=== PATIENT | male | born 1980 | race Caucasian/White ===

== ENCOUNTER 2020-07-10 17:43 | Inpatient (IN) | payer MEDICARE, OTHER ==
[~2020-07-10] VITALS: Ht 175.3 cm; Wt 91.0 kg
[~2020-07-10 17:43] MED LIST: ACET500T68 PO; AMIN887L PO; ARGI1POW19 PO; ASCO100T4 PO; BACL10TA PO; CALC200T23 PO; CLONAZEPAM1 MG PO; CYCL10TA2 PO; ENOX40DI SQ; ESCITALOPRAM OX10 MG PO; FENT1PAT91 TD; FERR325T14 PO; FURO80TA3 PO; LACT1CAP19 PO; LEVO500T8 PO; LIDO700A21 TP; LOPE-101 PO; MAG-115 PO; METR500T PO; MULT15TA3 PO; OXYC30TA21 PO; PANT40TA77 PO; POLY2500 PO; PREG300C PO; TOLT2CAP PO; VANC125C10 PO; VANC250C3 PO; VITA25006 PO; ZOLP10TA PO
--- NOTE | 2020-07-10 18:43 | PHYS DOC ---
Past Medical History Past Medical History: CHF, Depression, GERD, Pneumonia, UTI Additional Past Medical Histor: CELLULITIS, PE, ULCERS, PARAPLEGIA, CDIFF, URINARY RETENTION, ULCERS, Past Surgical History: Other Additional Past Surgical Histo: MULTIPLE UNSTAGABLE ULCERS, SUPRAPUBIC C ATHETER, COLOSTOMY, PEG TUBE Smoking Status: Former Smoker Alcohol Use: Sober Drug Use: None Social History Narrative: "I USED TO BEFORE I WAS PLACED IN THE OLD [employer] H OME." General Adult EDM: Chief Complaint: LOWER EXTREMITY SWELLING HPI: HPI: 39-year-old paraplegic male presents via EMS with report of right foot and toe swelling and redness x2 weeks. Patient reports symptoms have not improved. Patient does have a history of DVT. Patient reports he has a IVC filter. Patient denies use of blood thinners. Denies fever or chills. Patient does have a history of pressure ulcers for which he sees wound management. Denies diabetes. Denies chest pain or shortness of air. Review of Systems: Review of Systems: Constitutional: Denies fever or chills Eyes: Denies redness or eye pain HENT: Denies nasal congestion or sore throat Respiratory: Denies cough or shortness of breath Cardiovascular: Denies chest pain or palpitations GI: Denies abdominal pain, nausea, or vomiting : Denies dysuria or hematuria Musculoskeletal: Reports right flank pain; reports swelling and redness to right distal foot and toes Integument: Reports redness and swelling to right distal foot and toes Neurologic: Denies headache, focal weakness or sensory changes Complete systems were reviewed and found to be within normal limits, except as d ocumented in this note. Heart Score: C/O Chest Pain: N/A Allergies: Allergies: Allergies Coded Allergies Type Severity Reaction Last Updated Verified amoxicillin Allergy Intermediate 01/10/20 Yes linezolid Allergy Intermediate 01/10/20 Yes I S O L A T I O N *CONTACT* Allergy Unknown MRSA WOUNDS 01/10/20 Yes ciprofloxacin Adverse Reaction Intermediate MAKES HIM FEEL LIKE HE IS FLOATING 06/25/20 Yes doxycycline Adverse Reaction Intermediate 06/24/20 Yes cefdinir Adverse Reaction Mild Nausea and Vomiting 01/10/20 Yes Physical Exam: PE: Constitutional: Well developed, well nourished, no acute distress, non-toxic appearance HENT: Normocephalic, atraumatic Eyes: Conjunctiva normal, no discharge Neck: Normal range of motion, supple Lungs & Thorax: No respiratory distress, equal chest rise and fall Abdomen: Soft, no tenderness, suprapubic catheter noted, ostomy also noted Skin: Warm, dry, no erythema, no rash Extremities: Bilateral lower extremity atrophy noted, right leg and foot with multiple healing ulcerations, right distal toes and foot erythematous and swollen Neurologic: Alert and oriented X 3, lower extremity paraplegia Psychologic: Affect normal, judgment normal Current Patient Data: Vital Signs: Vital Signs Date Time Temp Pulse Resp B/P (MAP) Pulse Ox O2 Delivery O2 Flow Rate FiO2 07/10/20 17:46 98.1 114 12 131/76 (94) 95 Room Air 98.1 EKG: EKG: [] Radiology/Procedures: Radiology/Procedures: PROCEDURE: VENOUS LOWER EXTREMITY RIGHT Examination: Right Lower Extremity Venous Doppler Ultrasound History: Right foot pain, redness, swelling Comparison: None Procedure: Young scale, color flow 2D and spectal waveform analysis images are obtained with and without compression in the area of the common femoral vein, superficial femoral vein - femoral vein junction, main femoral vein (superficial femoral vein) and popliteal vein. Veins of the proximal calf are also imaged. Findings: There is partial echogenicity identified in the common femoral vein, superficial femoral vein and popliteal vein likely partial thrombosis. There is occlusive thrombus identified in the posterior tibialis vein. The peroneal vein is not well-visualized. Few enlarged lymph nodes identified in the colon with the largest measuring 1.6 cm which appears somewhat abnormal. IMPRESSION: 1. Partial deep venous thrombosis identified in the common femoral vein, superficial femoral vein and popliteal vein. Occlusive deep venous thrombosis identified in the posterior tibialis vein. 2. Abnormal appearing lymph node identified in the right inguinal region. Electronically signed by: Kishore Vázquez MD (07/10/2020 10:38 PM) [id number] PROCEDURE: FOOT RIGHT 3V EXAM: 3 views of the right foot DATE: 07/10/2020 7:18 PM INDICATION: Reason: erythema/swelling toes, eval for osteomyelitis / Spl. Instructions: / History: COMPARISON: No Prior FINDINGS: Marked osteopenia. Resection of the majority of the calcaneus and fifth metatarsal. Marked osteopenia limits evaluation for fracture or osteomyelitis. Within these constraints no definite erosive/destructive change or periostitis to suggest osteomyelitis. However MRI is more sensitive. Diffuse soft tissue swelling about the right foot. Multifocal degenerative changes are seen. IMPRESSION: 1. No radiographic evidence for osteomyelitis although MRI is more sensitive. 2. Marked osteopenia. 3. Multifocal degenerative change. 4. Postsurgical changes as outlined above. Electronically signed by: Mansoor Hernandez MD (07/11/2020 12:23 AM) [facility] Course & Med Decision Making: Course & Med Decision Making Pertinent Labs and Imaging studies reviewed. (See chart for details) Patient presents with right distal foot/toes with redness and swelling. History of prior DVT. Patient sent via EMS from alf for evaluation for rule out DVT. Patient has known arterial clot. Patient is paraplegic. Concern for possible infectious etiology. Labs obtained and posted to chart. WBC/ESR/CRP elevated. Lactic acid within normal limits. Vancomycin therefore provided due to concern for cellulitis. X-ray obtained with sign of osteopenia without definitive fracture or signs of osteomyelitis. Venous Doppler positive for acute DVT. Lovenox therefore given. Suprapubic catheter exchanged. UA with signs of infection. Other empiric antibiotic ordered. Given multiple drug allergies, gentamicin ordered per pharmacy. Patient requiring admission for further evaluation and treatment. Discussed with Dr. Mixon (hospitalist) who is in agreement with admission. Discussed findings and plan with patient, who acknowledges understanding and agreement. Cooper Disclaimer: Cooper Disclaimer: This electronic medical record was generated, in whole or in part, using a voice recognition dictation system. Additional Procedures Progress Suprapubic catheter replacement: Verbal consent obtained. Time out performed. Hand hygiene utilized. Sterile gloves donned. Wound cleaned with Betadine swabs x3. Suprapubic catheter successfully placed with 16-gauge catheter with urometer down drain. 5 mL balloon catheter inflated. Patient tolerated procedure well and without difficulty. Departure Departure Impression: Primary Impression: Cellulitis of right foot Additional Impressions: DVT (deep venous thrombosis) Qualified Codes: I82.401 - Acute embolism and thrombosis of unspecified deep veins of right lower extremity Complicated urinary tract infection Disposition: ADMITTED INPATIENT Admitting Physician: CHRIS (Oral) Condition: STABLE Referrals: STEPHANIE PAT (PCP) Critical Care Time Critical care time was 30 minutes which includes time at bedside, spent in discussion of patient's care with specialists and/or family members, with interpretation of laboratory and/or radiological studies and is exclusive of procedures. CHRYSTAL WOODS DO Jul 10, 2020 18:43
[2020-07-10] MEDS ORDERED: IV NORMAL SALINE 1000ML BAG 1,000 ML IV ONE (18:45)
[2020-07-10] MEDS ORDERED: MORPHINE SULFATE 10 MG/ML VIAL. IV ONE (18:45)
[2020-07-10 19:21] LABS: BASO # 0.1 x10^3/uL (0.0-0.2); BASO % 1 % (0-3); EOS # 0.2 x10^3/uL (0.0-0.7); EOS % 3 % (0-3); HEMATOCRIT 42.1 % (39.0-53.0); HEMOGLOBIN 13.7 g/dL (13.0-17.5); LYMPH # 2.1 x10^3/uL (1.0-4.8); LYMPH % 27 % (24-48); MEAN CORPUSCULAR HEMOGLOBIN 25 pg (25-35); MEAN CORPUSCULAR HGB CONC 33 g/dL (31-37); MEAN CORPUSCULAR VOLUME 77 fL (79-100); MONO # 0.6 x10^3/uL (0.0-1.1); MONO % 8 % (0-9); NEUT # 4.8 x10^3/uL (1.8-7.7); NEUT % 62 % (31-73); PLATELET COUNT 401 x10^3/uL (140-400); RED BLOOD COUNT 5.47 x10^6/uL (4.30-5.70); RED CELL DISTRIBUTION WIDTH 17.4 % (11.5-14.5); WHITE BLOOD COUNT 7.8 x10^3/uL (4.0-11.0)
[2020-07-10 19:31] LABS: CALCIUM 9.2 mg/dL (8.5-10.1); CREATININE 0.8 mg/dL (0.7-1.3); GFR 107.6; POTASSIUM 4.1 mmol/L (3.5-5.1)
[2020-07-10 19:44] LABS: ALBUMIN 3.3 g/dL (3.4-5.0); ALBUMIN/GLOBULIN RATIO 0.6 (1.0-1.7); C-REACTIVE PROTEIN 31.1 mg/L (0-3.3); MAGNESIUM 2.2 mg/dL (1.8-2.4); TOTAL BILIRUBIN 0.2 mg/dL (0.2-1.0); TOTAL PROTEIN 8.5 g/dL (6.4-8.2)
[2020-07-10] MEDS ORDERED: VANCOMYCIN PER PHARMACY MC PRN (20:45)
[2020-07-10] MEDS ORDERED: VANCOMYCIN 2 GM in IV NORMAL SALINE 500ML BAG 500 ML IV ONE (21:00)
[2020-07-10] MEDS ORDERED: ONDANSETRON PF 4 MG/2 ML VIAL. IV PRN (22:00)
[2020-07-10] MEDS ORDERED: HYDROmorphone 2 MG/ML VIAL IVP ONE (22:00)
[2020-07-10] MEDS ORDERED: HYDROmorphone 2 MG/ML VIAL IVP PRN (22:00)
[2020-07-10] MEDS ORDERED: ACETAMINOPHEN 325 MG TABLET. PO PRN (22:00)
--- NOTE | 2020-07-10 22:40 | RAD ---
Examination: Right Lower Extremity Venous Doppler Ultrasound History: Right foot pain, redness, swelling Comparison: None Procedure: Young scale, color flow 2D and spectal waveform analysis images are obtained with and witho ut compression in the area of the common femoral vein, superficial femoral vein - femoral vein juncti on, main femoral vein (superficial femoral vein) and popliteal vein. Veins of the proximal calf are a lso imaged. Findings: There is partial echogenicity identified in the common femoral vein, superficial femoral vein and pop liteal vein likely partial thrombosis. There is occlusive thrombus identified in the posterior tibial is vein. The peroneal vein is not well-visualized. Few enlarged lymph nodes identified in the colon with the largest measuring 1.6 cm which appears some what abnormal. IMPRESSION: 1. Partial deep venous thrombosis identified in the common femoral vein, superficial femoral vein and popliteal vein. Occlusive deep venous thrombosis identified in the posterior tibialis vein. 2. Abnormal appearing lymph node identified in the right inguinal region. Electronically signed by: Kishore Vázquez MD (07/10/2020 10:38 PM) [id number]
[2020-07-11] VITALS (7 sets, daily range): BP systolic 109–132; BP diastolic 71–84
[2020-07-11 00:07] LABS: BILIRUBIN,URINE NEGATIVE (NEG); CLARITY,URINE TURBID; COLOR,URINE AMBER; NITRITE,URINE NEGATIVE (NEG); PH,URINE 5.5 (<5.0-8.0); PROTEIN,URINE 100 mg/dL (NEG-TRACE); UROBILINOGEN,URINE 0.2 mg/dL (0.2 mg/dL)
[2020-07-11 00:16] LABS: AMORPHOUS SEDIMENT,UR PRESENT /HPF; BACTERIA,URINE MANY /HPF (0-FEW); RBC,URINE 20-40 /HPF (0-2); WBC,URINE TNTC /HPF (0-4)
--- NOTE | 2020-07-11 00:25 | RAD ---
EXAM: 3 views of the right foot DATE: 07/10/2020 7:18 PM INDICATION: Reason: erythema/swelling toes, eval for osteomyelitis / Spl. Instructions: / History: COMPARISON: No Prior FINDINGS: Marked osteopenia. Resection of the majority of the calcaneus and fifth metatarsal. Marked osteopenia limits evaluation for fracture or osteomyelitis. Within these constraints no definite erosive/destru ctive change or periostitis to suggest osteomyelitis. However MRI is more sensitive. Diffuse soft tissue swelling about the right foot. Multifocal degenerative changes are seen. IMPRESSION: 1. No radiographic evidence for osteomyelitis although MRI is more sensitive. 2. Marked osteopenia. 3. Multifocal degenerative change. 4. Postsurgical changes as outlined above. Electronically signed by: Mansoor Hernandez MD (07/11/2020 12:23 AM) [facility]
--- NOTE | 2020-07-11 01:04 | NUR ---
Pharmacy Vancomycin Dosing Note S:Consulted to monitor and dose vancomycin started 07/10/20. O:JOI KWOK is a 39 year old M with Cellulitis . Height: 5 feet, 9 inches Weight: 92.1 kg [place] Body Weight: 70.70 Adjusted Body Weight: 74.82 Dosing Weight: Actual Other Antibiotics: LABS: Last BUN: 10 Last Creatinine: 0.8 Creatinine Clearance: 126 mL/min Last WBC: 7.8 Last Procalcitonin: Tmax (past 24 hours): Microbiology: I/O: Drug Levels: Last level: on at Last dose given 07/10/20 at 2200 Vancomycin Dosing: Loading Dose: 2000 mg x1 Dosing Weight: Actual Target Trough: 10-20 A: Based on: WT AND CRCL P: 1. Begin Vancomycin 1250 mg IV q8h 2. Follow up Trough level on 07/11/20 at 2130 3. Pharmacy will continue to monitor, follow and adjust therapy as needed. ROSALIND HOUSER RPH, 07/11/20104 Signed: 07/11/20 at 0105 by ROSALIND HOUSER RPH PHA
[2020-07-11] MEDS ORDERED: C.DIFF MED SCREEN BY RX. MC ONE (01:45)
[2020-07-11] MEDS: IV NORMAL SALINE 1000ML BAG 1,000 ML IV SCH ×2 (03:23→20:40)
[2020-07-11] MEDS ORDERED: GENTAMICIN PER PHARMACY. MC PRN (03:30)
[2020-07-11] MEDS ORDERED: GENTAMICIN SULFATE 400 MG in IV DEXTROSE 5% 100ML 100 ML IV SCH (05:00)
--- NOTE | 2020-07-11 05:08 | NUR ---
Pharmacy Aminoglycoside Dosing Note S: Consulted to monitor and dose Gentamicin started 07/11/20 O:JOI KWOK is a 39 year old M with Cellulitis Height: 5 feet, 9 inches Weight: 92.1 kg [place] Weight: 70.70 Adjusted Weight: 79.26 Dosing Weight:Adjusted Other Antibiotics: VANCO 1.25 GM Q8H LABS: BUN: 10 SCr:0.8 CrCl: 126 WBC: 7.8 Platelet: Tmax (past 24 hours): I/O: Microbiology: Drug Levels: Last Peak: on at Last Trough: on at Last Random Level: on at Last dose given 07/11/20 at 0500 A: Based on WT AND CRCL P: 1. Begin Gentamicin 5 mg/kg IV q24h 2. Follow up peak levels on at Follow up trough levels on at Follow up random levels on 07/11/20 at 1700 3. Pharmacy will continue to monitor, follow and adjust therapy as needed. ROSALIND HOUSER RPH, 07/11/20 0508 Signed: 07/11/20 at 0508 by ROSALIND HOUSER RPH PHA
[2020-07-11] MEDS ORDERED: VANCOMYCIN 1.25 GM in IV NORMAL SALINE 250ML 250 ML IV SCH (06:00)
--- NOTE | 2020-07-11 10:45 | NUR ---
SW following. Discussed with RN. 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 Wound care and ID consulted. RN notified of need for COVID test. SW will continue to follow.
[2020-07-11] MEDS ORDERED: MULTIVITAMIN I-VITE TABLET. PO SCH (12:00)
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
--- NOTE | 2020-07-11 14:21 | PDOC ---
Infectious Disease Note Vital Sign Vital Signs Vital Signs Date Time Temp Pulse Resp B/P (MAP) Pulse Ox O2 Delivery O2 Flow Rate FiO2 07/11/20 12:57 94 Room Air 2.0 07/11/20 11:00 97.5 89 17 123/75 (91) 97.5 Labs Lab Laboratory Tests Test 07/10/20 19:05 07/10/20 23:57 White Blood Count 7.8 x10^3/uL (4.0-11.0) Red Blood Count 5.47 x10^6/uL (4.30-5.70) Hemoglobin 13.7 g/dL (13.0-17.5) Hematocrit 42.1 % (39.0-53.0) Mean Corpuscular Volume 77 fL (79-100) Mean Corpuscular Hemoglobin 25 pg (25-35) Mean Corpuscular Hemoglobin Concent 33 g/dL (31-37) Red Cell Distribution Width 17.4 % (11.5-14.5) Platelet Count 401 x10^3/uL (140-400) Neutrophils (%) (Auto) 62 % (31-73) Lymphocytes (%) (Auto) 27 % (24-48) Monocytes (%) (Auto) 8 % (0-9) Eosinophils (%) (Auto) 3 % (0-3) Basophils (%) (Auto) 1 % (0-3) Neutrophils # (Auto) 4.8 x10^3/uL (1.8-7.7) Lymphocytes # (Auto) 2.1 x10^3/uL (1.0-4.8) Monocytes # (Auto) 0.6 x10^3/uL (0.0-1.1) Eosinophils # (Auto) 0.2 x10^3/uL (0.0-0.7) Basophils # (Auto) 0.1 x10^3/uL (0.0-0.2) Erythrocyte Sedimentation Rate 40 (0-15) Sodium Level 140 mmol/L (136-145) Potassium Level 4.1 mmol/L (3.5-5.1) Chloride Level 103 mmol/L (98-107) Carbon Dioxide Level 30 mmol/L (21-32) Anion Gap 7 (6-14) Blood Urea Nitrogen 10 mg/dL (8-26) Creatinine 0.8 mg/dL (0.7-1.3) Estimated GFR (Cockcroft-Gault) 107.6 BUN/Creatinine Ratio 13 (6-20) Glucose Level 135 mg/dL (70-99) Lactic Acid Level 1.6 mmol/L (0.4-2.0) Calcium Level 9.2 mg/dL (8.5-10.1) Magnesium Level 2.2 mg/dL (1.8-2.4) Total Bilirubin 0.2 mg/dL (0.2-1.0) Aspartate Amino Transf (AST/SGOT) 16 U/L (15-37) Alanine Aminotransferase (ALT/SGPT) 12 U/L (16-63) Alkaline Phosphatase 88 U/L (46-116) C-Reactive Protein, Quantitative 31.1 mg/L (0-3.3) Total Protein 8.5 g/dL (6.4-8.2) Albumin 3.3 g/dL (3.4-5.0) Albumin/Globulin Ratio 0.6 (1.0-1.7) Urine Collection Type U cath Urine Color Z[place] Urine Clarity Turbid Urine pH 5.5 (<5.0-8.0) Urine Specific [place] >=1.030 (1.000-1.030) Urine Protein 100 mg/dL (NEG-TRACE) Urine Glucose (UA) Negative mg/dL (NEG) Urine Ketones (Stick) Negative mg/dL (NEG) Urine Blood Large (NEG) Urine Nitrite Negative (NEG) Urine Bilirubin Negative (NEG) Urine Urobilinogen Dipstick 0.2 mg/dL (0.2 mg/dL) Urine Leukocyte Esterase Moderate (NEG) Urine RBC 20-40 /HPF (0-2) Urine WBC Tntc /HPF (0-4) Urine Squamous Epithelial Cells Mod /LPF Urine Amorphous Sediment Present /HPF Urine Bacteria Many /HPF (0-FEW) Urine Mucus Mod /LPF Objective Assessment Pyruia. SPT chg 07/10. DVT RLE Multiple abx allergies Recent h/o c. diff 05/2020 h/o MRSA Multiple chronic pressure wounds - no signs of infection Paraplegia Plan Plan of Care DC IV vanc and gent Recommend meropenem Resume po vanc f/u cultures Monitor labs/temp Wound care team consulted Contact isolation Discussed with nursing Thank you [phone] Attending Co-Sign The patient was seen and interviewed as well as examined at the bedside. The chart was reviewed. The case was discussed. Agree with the plan of care. AMANDA PETERSEN APRN Jul 11, 2020 14:21 SHAYAN EMERY MD Jul 11, 2020 20:08
--- NOTE | 2020-07-11 15:00 | NUR ---
Wound/Ostomy Care Wound Type/Assessment: Patient seen per wound care consult. Patient is known to us from previous admissions. Patient has multiple PU's to multiple areas, ranging from Stage II to healing Stage IV. See wound assessment for details. Dr. Green also at bedside for assessment. Wounds cleansed, assessed, measured, and pictured. Per Dr. Green No debridement at this time is needed. Wounds have greatly improved since last admission. Treatment Recommendations/Plan: Recommendations for honey alginate to coccyx/sacrum/ischial wounds and cover with foam dressings. Then xeroform gauze, ABD pad, and kerlix to bilateral lower leg wounds. Skin prep to the right great toe. See dressing change instructions left in room. Patient transferred to the P-500 bed at this time. Patient should be turning every 2 hours. Education provided: Patient educated on dressing changes and PU treatment and management. Offloading surface/device: P-500 bed, a purple wedge, and pillows all for offloading Recommended Referrals/Tests: N/A Discharge Recommendations for dressings: Dressing change instructions left in room. Patient is from [facility] and will follow up with wound care there as before. Bed lowered and call light in reach. Wound care will follow up on 07/17/20.
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
[2020-07-11] MEDS: MORPHINE SULFATE 2 MG/ML VIAL. IV PRN (15:37)
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
[2020-07-11] MEDS ORDERED: GENTAMICIN RANDOM LEVEL. MC ONE (17:00)
[2020-07-11] MEDS: VANCOMYCIN 125 MG/2.5 ML ORAL SOLUTION. PO SCH ×2 (17:10→21:01)
[2020-07-11] MEDS: MEROPENEM 500 MG in IV NORMAL SALINE 50ML 50 ML IV SCH (18:10)
[2020-07-11] MEDS: ZOLPIDEM 5 MG TABLET. PO PRN ×2 (22:08→22:57)
[2020-07-11] MEDS: clonazePAM 0.5 MG TABLET PO SCH (22:08)
[2020-07-12] MEDS: MORPHINE SULFATE 2 MG/ML VIAL. IV PRN ×5 (00:01→20:29)
[2020-07-12] MEDS: MEROPENEM 500 MG in IV NORMAL SALINE 50ML 50 ML IV SCH ×4 (00:02→17:29)
[2020-07-12 03:26] VITALS: BP 116/76
[2020-07-12 07:00] VITALS: BP 135/79
--- NOTE | 2020-07-12 07:30 | PDOC ---
Infectious Disease Note Subjective: Subjective Patient without complaints Vital Signs: Vital Signs Vital Signs Date Time Temp Pulse Resp B/P (MAP) Pulse Ox O2 Delivery O2 Flow Rate FiO2 07/12/20 03:26 98.4 107 18 116/76 (89) 91 Room Air 98.4 07/11/20 12:57 2.0 Physical Exam: PHYSICAL EXAM GENERAL: The patient is propped up in bed, alert, oriented times HEENT: Pupils equally round, reactive. Normal conjunctivae. Oropharynx pink and moist. NECK: Supple. LUNGS: Clear to auscultation. HEART: Normal S1, S2. ABDOMEN: Obese, soft, nontender. Bowel sounds present. Ostomy and SPT (6-3), no signs of complications. EXTREMITIES: 2+ edema in lower extremities. No cyanosis. His right toes have mild erythema. SKIN: Warm to touch/generalized rash. He has multiple wounds involving the buttocks, sacral/coccyx and bilateral lower extremities. No signs of infection (pictures available). NEUROLOGIC: Alert awake oriented times [id number] questions appropriately. Paraplegic. Medications: Inpatient Meds: Medications reviewed. Objective: Assessment: 1. Pyuria with working diagnosis of UTI SPC changed this admission.. 2. Deep venous thrombosis right lower extremity. 3. MULTIPLE ANTIBIOTIC ALLERGIES. 4. Recent history of Clostridium difficile. 5. History of methicillin-resistant Staphylococcus aureus. 6. Multiple chronic pressure wounds without signs of infection. 7. Paraplegia. Plan: Plan of Care DC IV vanc and gent Cont meropenem Cont po vanc f/u cultures Monitor labs/temp Wound care team consulted Contact isolation Discussed with nursing SHAYAN EMERY MD Jul 12, 2020 07:30
[2020-07-12] MEDS: clonazePAM 0.5 MG TABLET PO SCH ×3 (08:38→20:29)
[2020-07-12] MEDS: MULTIVITAMIN with MINERAL TABLET. PO SCH (08:38)
[2020-07-12] MEDS: VANCOMYCIN 125 MG/2.5 ML ORAL SOLUTION. PO SCH ×4 (08:40→20:41)
[2020-07-12 10:10] VITALS: BP 118/78
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
[2020-07-12] MEDS: IV NORMAL SALINE 1000ML BAG 1,000 ML IV SCH (12:08)
--- NOTE | 2020-07-12 13:14 | NUR ---
Patient refused to have RN visualize wounds Addendum: 07/12/20 at 1315 by QUAN CONTRERAS RN RN Amended: Links added.
[2020-07-12 14:42] VITALS: BP 138/79
--- NOTE | 2020-07-12 15:44 | NUR ---
Report given to Mitra WINKLER
--- NOTE | 2020-07-12 17:56 | NUR ---
Patient encouraged to turn since I came on and took over patient care, patient refused.
[2020-07-12 19:00] VITALS: BP 111/66
[2020-07-12] MEDS: ZOLPIDEM 5 MG TABLET. PO PRN ×2 (20:28→20:36)
[2020-07-12 23:00] VITALS: BP 108/62
[2020-07-13] MEDS: MORPHINE SULFATE 2 MG/ML VIAL. IV PRN ×4 (00:07→22:11)
[2020-07-13] MEDS: MEROPENEM 500 MG in IV NORMAL SALINE 50ML 50 ML IV SCH ×4 (00:07→17:20)
[2020-07-13] MEDS: IV NORMAL SALINE 1000ML BAG 1,000 ML IV SCH ×2 (06:00→22:40)
[2020-07-13 07:00] VITALS: BP 115/71
[2020-07-13] MEDS: MULTIVITAMIN with MINERAL TABLET. PO SCH (08:29)
[2020-07-13] MEDS: clonazePAM 0.5 MG TABLET PO SCH ×3 (08:30→20:58)
[2020-07-13] MEDS: VANCOMYCIN 125 MG/2.5 ML ORAL SOLUTION. PO SCH ×4 (08:30→20:59)
--- NOTE | 2020-07-13 08:35 | NUR ---
Patient stated to RN that he does not want to be disturbed until after 11 am. Patient adamant that he wants his door shut and wants to be able to " rest".
--- NOTE | 2020-07-13 09:30 | PDOC ---
Infectious Disease Note Subjective: Subjective Patient resting quietly Per RN without complaints Vital Signs: Vital Signs Vital Signs Date Time Temp Pulse Resp B/P (MAP) Pulse Ox O2 Delivery O2 Flow Rate FiO2 07/13/20 08:30 Room Air 07/13/20 07:00 97.8 84 16 115/71 (86) 93 97.8 07/13/20 06:43 2.0 Physical Exam: PHYSICAL EXAM GENERAL: The patient is propped up in bed, alert, oriented times HEENT: Pupils equally round, reactive. Normal conjunctivae. Oropharynx pink and moist. NECK: Supple. LUNGS: Clear to auscultation. HEART: Normal S1, S2. ABDOMEN: Obese, soft, nontender. Bowel sounds present. Ostomy and SPT (6-3), no signs of complications. EXTREMITIES: 2+ edema in lower extremities. No cyanosis. His right toes have mild erythema. SKIN: Warm to touch/generalized rash. He has multiple wounds involving the buttocks, sacral/coccyx and bilateral lower extremities. No signs of infection (pictures available). NEUROLOGIC: Alert awake oriented times [id number] questions appropriately. Paraplegic. Medications: Inpatient Meds: Medications reviewed. Objective: Assessment: 1. Pyuria with working diagnosis of UTI SPC changed this admission.. 2. Deep venous thrombosis right lower extremity. 3. MULTIPLE ANTIBIOTIC ALLERGIES. 4. Recent history of Clostridium difficile. 5. History of methicillin-resistant Staphylococcus aureus. 6. Multiple chronic pressure wounds without signs of infection. 7. Paraplegia. Plan: Plan of Care Cont meropenem Cont po vanc f/u cultures Monitor labs/temp Wound care team consulted Contact isolation Discussed with nursing SHAYAN EMERY MD Jul 13, 2020 09:30
[2020-07-13 11:50] VITALS: BP 141/73
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
[2020-07-13 15:00] VITALS: BP 114/70
--- NOTE | 2020-07-13 15:51 | NUR ---
patient refusing wound assessment. Addendum: 07/13/20 at 1613 by QUAN CONTRERAS RN RN Amended: Links added.
[2020-07-13 19:36] VITALS: BP 122/71
[2020-07-13] MEDS: ZOLPIDEM 5 MG TABLET. PO PRN ×2 (20:58→22:11)
[2020-07-13 22:46] VITALS: BP 125/83
[2020-07-14] MEDS: MORPHINE SULFATE 2 MG/ML VIAL. IV PRN ×3 (01:42→08:27)
[2020-07-14] MEDS: MEROPENEM 500 MG in IV NORMAL SALINE 50ML 50 ML IV SCH ×2 (06:08)
[2020-07-14 07:00] VITALS: BP 119/77
[2020-07-14] MEDS: VANCOMYCIN 125 MG/2.5 ML ORAL SOLUTION. PO SCH (08:27)
[2020-07-14] MEDS: MULTIVITAMIN with MINERAL TABLET. PO SCH (08:27)
[2020-07-14] MEDS: clonazePAM 0.5 MG TABLET PO SCH ×2 (08:27→14:00)
[2020-07-14] MEDS ORDERED: fentaNYL 50MCG/HR PATCH 1 PATCH PATCH.TD72 TD ONE (10:00)
--- NOTE | 2020-07-14 10:49 | PDOC ---
Infectious Disease Note Subjective Subjective Patient resting quietly Per RN without complaints ROS ROS no n/v/d/ Vital Sign Vital Signs Vital Signs Date Time Temp Pulse Resp B/P (MAP) Pulse Ox O2 Delivery O2 Flow Rate FiO2 07/14/20 08:57 Room Air 07/14/20 07:00 97.9 72 18 119/77 (91) 95 97.9 07/14/20 01:44 2.0 Physical Exam PHYSICAL EXAM GENERAL: The patient is propped up in bed, alert, oriented times HEENT: Pupils equally round, reactive. Normal conjunctivae. Oropharynx pink and moist. NECK: Supple. LUNGS: Clear to auscultation. HEART: Normal S1, S2. ABDOMEN: Obese, soft, nontender. Bowel sounds present. Ostomy and SPT (6-3), no signs of complications. EXTREMITIES: 2+ edema in lower extremities. No cyanosis. His right toes have mild erythema. SKIN: Warm to touch/generalized rash. He has multiple wounds involving the buttocks, sacral/coccyx and bilateral lower extremities. No signs of infection (pictures available). NEUROLOGIC: Alert awake oriented times [id number] questions appropriately. Paraplegic. Labs Micro Microbiology 07/11/20 Urine Culture - Final, Complete 07/10/20 Blood Culture - Preliminary, Resulted NO GROWTH AFTER 3 DAYS Objective Assessment 1. Pyuria with working diagnosis of UTI SPC changed this admission.. 2. Deep venous thrombosis right lower extremity. 3. MULTIPLE ANTIBIOTIC ALLERGIES. 4. Recent history of Clostridium difficile. 5. History of methicillin-resistant Staphylococcus aureus. 6. Multiple chronic pressure wounds without signs of infection. 7. Paraplegia. Plan Plan of Care d/c meropenem Cont po vanc bid for 2 wks f/u cultures Monitor labs/temp Wound care team consulted Contact isolation Discussed with nursing ok to d/c to SNF BRIAN EMERY MD Jul 14, 2020 10:48
[2020-07-14 10:59] VITALS: BP 132/76
--- NOTE | 2020-07-14 11:02 | NUR ---
MILENA following. Discussed with RN, pt from [facility], room air, cardiac diet. Abx changed to to PO vanc. Dr. Angelo entering discharge orders. MILENA notified [facility], awaiting orders to fax and transportation time. MILENA will continue to follow. Addendum: 07/14/20 at 1232 by MIESHA ABBOTT Discharge orders faxed. [facility] arranged transportation for 1500. RN notified.
[2020-07-14] MEDS ORDERED: VANC500V PO (11:11)
--- NOTE | 2020-07-14 11:16 | SNU/HH DC ---
DISCHARGE ORDERS DISCHARGE INFORMATION: FINAL DIAGNOSIS Problems Medical Problems: (1) Cellulitis of right foot Status: Acute (2) Complicated urinary tract infection Status: Acute (3) DVT (deep venous thrombosis) Status: Acute CONDITION ON DISCHARGE: Stable CODE STATUS: Code Status: Full ALF: SNF STAY <30 DAYS: No HOSPICE: HOSPICE: No HOSPICE EVAL & TREAT: No LTAC: ADMIT TO LTAC: No POST DISCHARGE ORDERS: ACTIVITY ORDERS: Resume previous activity, Activity as tolerated WEIGHT BEARING STATUS: No restrictions DIET AFTER DISCHARGE: Cardiac WOUND/INCISION CARE: Change dressing CHECKS AFTER DISCHARGE: CHECKS AFTER DISCHARGE: Check blood press - daily, Check your Temp as needed FOLLOW-UP: Additional Instructions: Please see prescriptions for Eliquis and p.o. vancomycin TREATMENT/EQUIPMENT ORDERS: ADAPTIVE EQUIPMENT NEEDED: Grab bars, Long handled shoe horn, [employer] DISCHARGE MEDICATIONS: Home Meds Active Scripts Lactobacillus Rhamnosus Gg (CULTURELLE) 1 Each Cap.sprink, 1 CAP PO BID for SUPPLEMENT for 30 Days, #60 CAP Prov:BRIANNA ARCE MD 06/25/20 Calcium Carbonate (CALCIUM CARBONATE) 200 Mg Tab.chew, 500 MG PO PRN Q3HRS PRN for UPSET STOMACH for 30 Days, #100 TAB.CHEW Prov:BRIANNA ARCE MD 06/25/20 Levofloxacin (LEVOFLOXACIN) 500 Mg Tablet, 500 MG PO DAILY06 for INFECTION, PNEUMONIA for 10 Days, #10 TAB Prov:BRIANNA ARCE MD 06/25/20 Reported Medications Vitamin D3/Folic Acid (Noxifol-D3 2,500 Unit-1 mg Tab) 2,500 Unit Tablet, 5000 UNIT PO DAILY for supplement, TAB 06/22/20 Ascorbic Acid (VITAMIN C) 100 Mg Tablet, 1 TAB PO DAILY for supplement for 30 Days, #30 TAB 0 Refills 06/22/20 Vancomycin Hcl (VANCOCIN HCL) 125 Mg Capsule, 1 CAP PO QID for c diff for 10 Days, #40 CAP 0 Refills 06/22/20 Acetaminophen (ACETAMINOPHEN) 500 Mg Tablet, 2 TAB PO PRN Q6HRS PRN for pain or fever for 15 Days, #60 TAB 0 Refills 06/22/20 Amino Acids/Protein Hydrolys (PRO-STAT LIQUID) 887 Ml Liquid, 30 ML PO QHS for wounds, LIQUID 06/22/20 Polyethylene Glycol 3350 (POLYETHYLENE GLYCOL 3350) 2,500 Gm Powder, 17 GM PO PRN DAILY PRN for CONSTIPATION, #255 GM 0 Refills 06/22/20 Mag Hydrox/Aluminum Hyd/Simeth (Mylanta Maximum Strength Liq) 355 Ml Oral.susp, 10 ML PO PRN Q6HRS PRN for NAUSEA, MISC 06/22/20 Multivit-Min/Ferrous Fumarate (Multivitamin with Minerals Tab) 15 Mg Tablet, 15 MG PO DAILY for supplement, TAB 06/22/20 Loperamide HCl (Imodium A-D) 2 Mg Capsule, 4 MG PO Q1HR PRN for DIARRHEA, CAP 06/22/20 Arginine/Ascorbate Sod/Jefferson AC (Arginaid Powder) 1 Each Powd.pack, 1 EACH PO BID for wounds, PKT 06/22/20 Oxycodone Hcl (ROXICODONE) 30 Mg Tablet, 30 MG PO PRN Q4-6HRS PRN for PAIN, TAB 01/09/20 Clonazepam (CLONAZEPAM) 1 Mg Tablet, 1 MG PO TID for FOR ANXIETY, TAB 01/09/20 Zolpidem Tartrate (AMBIEN) 10 Mg Tablet, 10 MG PO QHS for insomnia, TAB 0 Refills 01/09/20 Tolterodine Tartrate (DETROL LA) 2 Mg Cap.er.24h, 2 MG PO BID for bladder, CAP.SR 01/09/20 Pregabalin (LYRICA) 300 Mg Capsule, 300 MG PO BID for other , CAP 0 Refills 01/09/20 Pantoprazole Sodium (PROTONIX ) 40 Mg Tablet.dr, 40 MG PO DAILYAC for GERD, TAB 01/09/20 Ferrous Sulfate (FERROUS SULFATE) 325 Mg Tablet, 325 MG PO DAILY for iron supplement , TAB 01/09/20 Escitalopram Oxalate (ESCITALOPRAM OXALATE) 10 Mg Tablet, 10 MG PO DAILY for ANTI-DEPRESSANT, #30 TAB 0 Refills 01/09/20 Cyclobenzaprine Hcl (CYCLOBENZAPRINE HCL) 10 Mg Tablet, 10 MG PO TID for muscle spasms , TAB 01/09/20 Fentanyl (DURAGESIC 50mcg/hr) 1 Each Patch.td72, 1 PATCH TD Q72H for pain, PATCH 01/09/20 Baclofen (BACLOFEN) 10 Mg Tablet, 2 TAB PO BID for MUSCLE RELAXER, #30 TAB 0 Refills 01/09/20 MACIEJ ROGERS III DO Jul 14, 2020 11:16
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
[2020-07-14] MEDS: IV NORMAL SALINE 1000ML BAG 1,000 ML IV SCH (15:20)
--- NOTE | 2020-07-14 15:37 | NUR ---
[facility]. photograph taken. patient verbalized understanding of discharge. report was called.
[2020-07-14] MEDS ORDERED: VANCOMYCIN 125 MG/2.5 ML ORAL SOLUTION. PO SCH (21:00)
== END 2020-07-14 14:45 | disposition home or self-care (01) | DRG 602 ==
LOC: ER 17:43 → 4 NORTH 20:25
PROVIDERS: ADMIT Family Medicine; ATTEND Family Medicine
PROC: 0T2BX0Z Change Drainage Device in Bladder, External Approach (ICD-10-PCS; principal; 2020-07-11)
DX: L03.115 Cellulitis of right lower limb (principal); L89.304 Pressure ulcer of unspecified buttock, stage 4; G82.20 Paraplegia, unspecified; I82.411 Acute embolism and thrombosis of right femoral vein; N39.0 Urinary tract infection, site not specified; I82.431 Acute embolism and thrombosis of right popliteal vein; I82.441 Acute embolism and thrombosis of right tibial vein; F32.9 Major depressive disorder, single episode, unspecified; F41.9 Anxiety disorder, unspecified; G89.29 Other chronic pain; I50.9 Heart failure, unspecified; K21.9 Gastro-esophageal reflux disease without esophagitis; E66.9 Obesity, unspecified; Z82.49 Family history of ischemic heart disease and other diseases of the circulatory system; Z86.14 Personal history of Methicillin resistant Staphylococcus aureus infection; Z87.891 Personal history of nicotine dependence; Z88.1 Allergy status to other antibiotic agents; Z93.3 Colostomy status; Z87.01 Personal history of pneumonia (recurrent); Z88.8 Allergy status to other drugs, medicaments and biological substances; Z91.041 Radiographic dye allergy status; Z68.29 Body mass index [BMI] 29.0-29.9, adult; Z20.822 Contact with and (suspected) exposure to COVID-19
CPT/HCPCS: 36415; 51705; 73630; 80053; 81001; 83605; 83735; 85025; 85651; 86140; 87040; 87086; 93971; 96361; 96365; 96375; J1170; J1580; J1650; J2185; J2270; J3370; J7030; J7040; J7050; J7060; U0003; U0005; 99291-25; G0378

== ENCOUNTER 2020-07-19 19:03 | Emergency (ER) | payer MEDICARE, OTHER ==
[~2020-07-19] VITALS: Ht 175.3 cm; Wt 90.0 kg
[~2020-07-19 19:03] MED LIST changes: +VANC500V PO
[2020-07-19] MEDS ORDERED: LIDOCAINE 2% JELLY 6ML IN APPLICATOR. MM ONE (19:30)
--- NOTE | 2020-07-19 19:43 | PHYS DOC ---
Past Medical History Past Medical History: CHF, Depression, GERD, Pneumonia, UTI Additional Past Medical Histor: CELLULITIS, PE, ULCERS, PARAPLEGIA, CDIFF, URINARY RETENTION, ULCERS, Past Surgical History: Other Additional Past Surgical Histo: MULTIPLE UNSTAGABLE ULCERS, SUPRAPUBIC C ATHETER, COLOSTOMY, PEG TUBE Smoking Status: Former Smoker Alcohol Use: Sober Drug Use: None General Adult EDM: Chief Complaint: URINE CATHETER PROBLEM HPI: HPI: 39-year-old male with multiple medical problems paraplegic with chronic indwe lling suprapubic catheter (well known to myself-[facility] presents to the ED with complaints of suprapubic catheter not draining and urine coming out from the tip of his penis. Patient reports he only feels the catheter with 5cc of fluid instead of the recommended 10 cc seen on the catheter tubing. Review of Systems: Review of Systems: Constitutional: Denies fever or chills. [] Eyes: Denies change in visual acuity. [] HENT: Denies nasal congestion or sore throat. [] Respiratory: Denies cough or shortness of breath. [] Cardiovascular: Denies chest pain or hemoptysis GI: Denies abdominal pain, nausea, vomiting, : Denies cloudy urine, hematuria, or urethral discharge Musculoskeletal: Denies flank pain or joint pain. [] Integument: Denies rash or diaphoresis Neurologic: Denies headache, focal weakness or sensory changes. [] Endocrine: Denies polyuria or polydipsia. [] Lymphatic: Denies swollen glands. [] Psychiatric: Denies depression or anxiety. [] Heart Score: C/O Chest Pain: No Risk Factors: Risk Factors: DM, Current or recent (<one month) smoker, HTN, HLP, family history of CAD, obesity. Risk Scores: Score 0 - 3: 2.5% MACE over next 6 weeks - Discharge Home Score 4 - 6: 20.3% MACE over next 6 weeks - Admit for Clinical Observation Score 7 - 10: 72.7% MACE over next 6 weeks - Early Invasive Strategies Current Medications: Current Medications Medications (Trade) Dose Ordered Sig/[facility] Start Time Stop Time Status Last Admin Dose Admin Lidocaine HCl (Glydo (Lidocaine) Jelly) 1 marley 1X ONCE 07/19/20 19:30 07/19/20 19:31 DC Allergies: Allergies: Allergies Coded Allergies Type Severity Reaction Last Updated Verified amoxicillin Allergy Intermediate 01/10/20 Yes linezolid Allergy Intermediate 01/10/20 Yes I S O L A T I O N *CONTACT* Allergy Unknown MRSA WOUNDS 01/10/20 Yes ciprofloxacin Adverse Reaction Intermediate MAKES HIM FEEL LIKE HE IS FLOATING 06/25/20 Yes doxycycline Adverse Reaction Intermediate 06/24/20 Yes cefdinir Adverse Reaction Mild Nausea and Vomiting 01/10/20 Yes Physical Exam: PE: Constitutional: Well developed, well nourished, no acute distress, non-toxic appearance. HENT: Normocephalic, atraumatic, Eyes: EOMI, conjunctiva normal, no discharge. Neck: Normal range of motion, supple, Cardiovascular: S1/2 present, regular rhythm Lungs & Thorax: Speaking in full sentences, bilateral equal chest rise, no tachypnea or increased work of breathing Abdomen: soft, no tenderness, no pain with suprapubic pressure over bladder Skin: Warm, dry, no erythema, no rash. [] Back: No tenderness, no CVA tenderness. [] Extremities: No tenderness, no cyanosis, Neurologic: Alert and oriented X 3, normal motor function, normal sensory function, no focal deficits noted. [] Psychologic: Affect normal, judgement normal, mood normal. [] : declines exam states "I don't want you to look at my penis, you don't need to," despite me educating on risks of rash/ulcers, pt has medical decision-hill ing capacity EKG: EKG: [] Radiology/Procedures: Radiology/Procedures: [] Course & Med Decision Making: Course & Med Decision Making Pertinent Labs and Imaging studies reviewed. (See chart for details) Encounter for suprapubic catheter change. I observed the 16 [place] suprapubic catheter being removed-very small blood clot was removed. Suspect poorly managed catheter versus pt manipulating the catheter. Patient with no active pain. RN reports no complications with insertion of suprapubic catheter. Patient hemodynamically stable with no other complaints. Was educated on catheter care. Will discharge home with strict ED return precautions were given for suprapubic pain, nausea, vomiting or flank pain. Encouraged urgent outpatient follow-up with PMD for routine care. Life-threatening processes were considered but are low suspicion at this time, given history, physical exam and ED workup. Pt was educated on all prescription medications and adverse effects. All patient's questions were answered and pt was stable at time of discharge. Life/limb-threatening differential includes but is not limited to, child abuse/sexual assault, blunt vs penetrating trauma, bladder or urethral injury, penile fracture/amputation/contusion, testicular rupture or dislocation, traumatic epididymitis, or pelvic injury or fracture. I spoken with the patient and her caregivers. I explained the patient's condition, diagnoses and treatment plan based on the information available to me at this time. I have answered the patient and her caregiver's questions and ad dressed any concerns. The patient and her caregivers have a good understanding of patient's diagnosis, condition and treatment plan as can be expected at this point. Vital signs have been stable. Patient's condition is stable and appropriate for discharge from the emergency department. Patient will pursue further outpatient evaluation with primary care physician or other designated or consulting physician as outlined in the discharge instructions. The patient and/or caregivers are agreeable to this plan of care and follow-up instructions have been explained in detail. The patient and/or caregivers have received these instructions in written form and have expressed an understanding of the discharge instructions. The patient and/or caregivers are aware that any significant change of condition or worsening of symptoms should prompt immediate return to this or the closest emergency department or call to 911. Cooper Disclaimer: Cooper Disclaimer: This electronic medical record was generated, in whole or in part, using a voice recognition dictation system. Departure Departure Impression: Primary Impression: Encounter for suprapubic catheter care Disposition: HOME / SELF CARE / HOMELESS Condition: STABLE Referrals: STEPHANIE PAT (PCP) For routine care in 24-48 hours Patient Instructions: Suprapubic Catheter Home Guide, Suprapubic Catheter Replacement Additional Instructions: EMERGENCY DEPARTMENT GENERAL DISCHARGE INSTRUCTIONS Thank you for coming to [facility] Emergency Department (ED) today and trusting us with you care. We trust that you had a positive experience in our Emergency Department. If you wish to speak to the department management, you may call the Director at [phone]. YOUR FOLLOW UP INSTRUCTIONS ARE FOLLOWS: 1. Do you have a private Doctor? If you do not have a private doctor, please ask for a resource list of physicians or clinics that may be able to assist you with foll ow up care. 2. The Emergency Physicain has interpreted your x-rays. The X-Ray specialist will also review them. If there is a change in the findings, you will be notified in 48 hours when at all possible. 3. A lab test or culture has been done, your results will be reviewed and you will be notified if you need a change in treatment. ADDITIONAL INSTRUCTIONS AND INFORMATION: 1. Your care today has been supervised by a physician who is specially trained in emergency care. Many problems require more than one evaluation for a complete diagnosis and treatment. We recommend that you schedule your follow up appointment as re commended to ensure complete treatment of you illness or injury. If you are unable to obtain follow up care and continue to have a problem, or if your condition worsens, we recommend that you return to the ED. 2. We are not able to safely determine your condition over the phone nor are we able to give sound medical advice over the phone. For these safety reasons, if you call for medical advice we will ask you to come to the ED for further evaluation. 3. If you have any questions regarding these discharge instructions please call the ED at [phone]. SAFETY INFORMATION: In the interest of safety, wellness, and injury prevention; we encourage you to wear your sealbelt, if you smoke; quite smoking, and we encourage family to use a protective helmet for bicycling and other sporting events that present an increased risk for head injury. IF YOUR SYMPTOMS WORSEN OR NEW SYMPTOMS DEVELOP, OR YOU HAVE CONCERNS ABOUT YOUR CONDITION; OR IF YOUR CONDITION WORSENS WHILE YOU ARE WAITING FOR YOUR FOLLOW UP APPOINTMENT; EITHER CONTACT YOUR PRIMARY CARE DOCTOR, THE PHYSICIAN WHOSE NAME AND NUMBER YOU WERE GIVEN, OR RETURN TO THE ED IMMEDIATELY. SITA LOPEZ DO Jul 19, 2020 19:43
[2020-07-19 20:00] VITALS: BP 132/84
== END 2020-07-19 20:25 | disposition home or self-care (01) ==
LOC: ER 19:03
DX: T83.028A Displacement of other urinary catheter, initial encounter (principal); K21.9 Gastro-esophageal reflux disease without esophagitis; Z88.1 Allergy status to other antibiotic agents; Z91.041 Radiographic dye allergy status; Z88.8 Allergy status to other drugs, medicaments and biological substances; Z87.891 Personal history of nicotine dependence; Z86.79 Personal history of other diseases of the circulatory system; Y82.8 Other medical devices associated with adverse incidents; Y92.89 Other specified places as the place of occurrence of the external cause
CPT/HCPCS: 51705; 99284

== ENCOUNTER → 2021-01-12 | Day surgery (SDC) | payer MEDICARE, OTHER ==
[~2021-01-12] VITALS: Ht 167.6 cm; Wt 98.0 kg
[~2021-01-12] MED LIST changes: +CYCL10TA19 PO; -CYCL10TA2 PO; +IV RINGERS,LACTATED 1000ML 1,000 ML IV SCH; -LEVO500T8 PO; +LEVO500T9 PO; +LIDOCAINE 2% PF 5 ML VIAL. ONE; +PROPOFOL 10 MG/ML (20ML) VIAL. IV ONE; +fentaNYL PF VIAL 100 MCG/2 ML VIAL IVP ONE; +fentaNYL PF VIAL 100 MCG/2 ML VIAL ONE
[2021-01-12 12:53] VITALS: BP 102/53
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
--- NOTE | 2021-01-12 14:03 | PDOC4 ---
PROCEDURE Procedure EGD/remove G-tube Indication: unneeded g-tube Meds: per anesthesia Findings: E--Normal G--Gtube in body, otherwise normal. D--Normal to second portion. --g-tube grasped with snare, cut externally and removed orally. Bobo. well. IMP: Successful g-tube removal. REC: Resume meds, diet. F/u with me prn. CHRYSTAL GORDILLO MD Jan 12, 2021 14:03
[2021-01-12 14:35] VITALS: BP 110/59
== END | disposition home or self-care (01) ==
LOC: SURG 07:41 → EDSTATUS 13:30 → ENDOS 14:47
PROVIDERS: ATTEND Internal Medicine Gastroenterology
DX: Z43.1 Encounter for attention to gastrostomy (principal); K21.9 Gastro-esophageal reflux disease without esophagitis; I10 Essential (primary) hypertension; E78.00 Pure hypercholesterolemia, unspecified; F41.9 Anxiety disorder, unspecified; F32.9 Major depressive disorder, single episode, unspecified; Z87.440 Personal history of urinary (tract) infections; Z87.891 Personal history of nicotine dependence; Z79.899 Other long term (current) drug therapy; Z98.890 Other specified postprocedural states; Z88.1 Allergy status to other antibiotic agents; Z88.8 Allergy status to other drugs, medicaments and biological substances
CPT/HCPCS: 43247; J2704; J3010